=== PATIENT | male | born 1980 | race Hispanic/Latino ===

== ENCOUNTER 2018-03-21 01:46 | Emergency (ER) | payer SELFPAY ==
[~2018-03-21] VITALS: Ht 170.2 cm; Wt 104.3 kg
[2018-03-21] MEDS ORDERED: PANTOPRAZOLE 40 MG 10ML VIAL IV STA (01:51)
[2018-03-21] MEDS ORDERED: MORPHINE SULFATE 2 MG/ML SYR IV STA (01:51)
[2018-03-21] MEDS ORDERED: SODIUM CHLORIDE 0.9% 1000ML 1,000 ML IV STA (01:51)
[2018-03-21] MEDS ORDERED: ONDANSETRON HCL INJ 2 MG/ML VIAL IV STA (01:51)
[2018-03-21 02:14] LABS: BASOPHILS % 0.5 % (0.0-1.0); EOSINOPHILS # (AUTO) 0.1 (0.0-0.4); EOSINOPHILS % 1.6 % (0.0-6.0); HEMATOCRIT 44.4 % (38.2-49.6); HEMOGLOBIN 15.4 g/dL (14.0-18.0); LYMPHOCYTES # (AUTO) 2.7 (1.0-3.2); LYMPHOCYTES % 43.3 % (18.0-39.1); MEAN CORPUSCULAR HGB CONC 34.7 g/dL (31-35); MEAN CORPUSCULAR VOLUME 83.6 fL (81-99); MONOCYTES # (AUTO) 0.5 (0.2-0.8); MONOCYTES % 7.6 % (4.4-11.3); NEUTROPHILS # (AUTO) 2.9 (2.1-6.9); NEUTROPHILS % 46.8 % (38.7-80.0); PLATELET COUNT 136 x10e3/uL (140-360); RED BLOOD COUNT 5.31 x10e6/uL (4.3-5.7); RED CELL DISTRIBUTION WIDTH 14.6 % (11.7-14.4)
[2018-03-21 02:20] LABS: INR 1.1; PROTHROMBIN TIME 13.4 seconds (11.9-14.5)
[2018-03-21 02:21] LABS: PARTIAL THROMBOPLASTIN TIME 33.6 seconds (23.8-35.5)
[2018-03-21 02:29] LABS: ALANINE AMINOTRANSFERASE 148 IU/L (0-55); ALKALINE PHOSPHATASE 78 IU/L (40-150); AMYLASE 102 U/L (25-125); ANION GAP 22.4 mmol/L (8-16); BLOOD UREA NITROGEN 8 mg/dL (7-26); BUN/CREATININE RATIO 8 (6-25); CARBON DIOXIDE 19 mmol/L (22-29); CHLORIDE 104 mmol/L (98-107); CREATINE KINASE 799 IU/L (30-200); CREATININE, SERUM 0.99 mg/dL (0.72-1.25); EST GLOMERULAR FILTRATION RATE > 60 ML/MIN (60-); GLUCOSE 128 mg/dL (74-118); LIPASE 68 U/L (8-78); POTASSIUM 3.4 mmol/L (3.5-5.1); SODIUM 142 mmol/L (136-145)
[2018-03-21 02:32] LABS: ACETAMINOPHEN < 3 ug/mL (10-30); SALICYLATE < 5.0 mg/dL (0-30)
== END 2018-03-21 02:19 | disposition left against medical advice (07) ==
LOC: ER 01:46
DX: R10.13 Epigastric pain (principal); R11.2 Nausea with vomiting, unspecified; K92.0 Hematemesis; R06.02 Shortness of breath; R07.9 Chest pain, unspecified; I10 Essential (primary) hypertension; K21.9 Gastro-esophageal reflux disease without esophagitis
CPT/HCPCS: 36415; 80053; 80320; 80329; 82150; 82550; 82553; 83690; 83735; 84484; 85025; 85610; 85730; 86850; 86900; 93005; 99283